=== PATIENT | male | born 1980 | race Two or more races ===

== ENCOUNTER 2018-01-07 19:49 | Inpatient (IN) | payer MEDICARE, MEDICAID ==
[~2018-01-07] VITALS: Ht 177.8 cm; Wt 75.3 kg
[2018-01-07] MEDS ORDERED: SODIUM CHLORIDE 0.9% 1,000 ML IV ONE ×2 (20:34→21:07)
[2018-01-07] MEDS ORDERED: KETOROLAC 30MG/ML VIAL IV STA (20:34)
[2018-01-07] MEDS ORDERED: ONDANSETRON HCL 4MG/2ML INJ IV STA (21:07)
[2018-01-07] MEDS ORDERED: MORPHINE SULFATE 4 MG/ML CPJ (NOT FOR IM USE) IV STA (21:07)
[2018-01-07 22:22] LABS: HEMATOCRIT. 22.1 % (42.0-52.0); HEMOGLOBIN. 7.8 g/dL (14.0-18.0); MEAN CORPUSCULAR HEMOGLOBIN 35.8 pg (28.0-32.0); MEAN CORPUSCULAR VOLUME 101.3 fL (80.0-94.0); PLATELET 202 x1000/uL (130-400); RED BLOOD CELL COUNT 2.18 mill/uL (4.7-6.1)
[2018-01-07 22:25] LABS: CHLORIDE 108 mEq/L (98-107)
[2018-01-07] MEDS ORDERED: MORPHINE SULFATE 4 MG/ML CPJ (NOT FOR IM USE) IV ONE (22:30)
[2018-01-07 22:46] LABS: NUCLEATED RED BLOOD CELLS 1 /100 WBC; PLATELET ESTIMATE NORMAL
[2018-01-07] MEDS ORDERED: HYDROMORPHONE HCL/PF 2MG/ML CPJ IV ONE (23:00)
[2018-01-07] MEDS ORDERED: HYDROMORPHONE HCL/PF 2MG/ML CPJ IV SCH (23:15)
[2018-01-07] MEDS ORDERED: ONDANSETRON HCL 4MG/2ML INJ IV PRN (23:45)
[2018-01-07] MEDS ORDERED: IPRATROPIUM/ALBUTEROL 0.5-3(2.5)MG/3ML NEB INH PRN (23:45)
[2018-01-07] MEDS ORDERED: GUAIFENESIN 200MG/10ML SUGAR FREE UDC PO PRN (23:45)
[2018-01-07] MEDS ORDERED: DOCUSATE SODIUM 100MG CAPSULE PO PRN (23:45)
[2018-01-07] MEDS ORDERED: NA PHOS,M-B/NA PHOS,DI-BA ENEMA 118ML PR PRN (23:45)
[2018-01-07] MEDS ORDERED: CLONIDINE 0.1MG TABLET PO PRN (23:45)
[2018-01-07] MEDS ORDERED: MAGNESIUM/ALUMINUM HYDROXIDE/SIMETHICONE 30ML UDC PO PRN (23:45)
[2018-01-08] MEDS: HYDROMORPHONE HCL/PF 2MG/ML CPJ IV PRN ×8 (02:11→22:45)
[2018-01-08] MEDS: DIPHENHYDRAMINE 50MG/ML VIAL IV PRN (02:11)
[2018-01-08 04:00] VITALS: BP 105/49
[2018-01-08 04:20] VITALS: BP 119/74
[2018-01-08 08:00] VITALS: BP 98/61
[2018-01-08] MEDS: ENOXAPARIN 40MG/0.4ML SYR SUBCUT SCH (08:39)
[2018-01-08] MEDS: SODIUM CHLORIDE 0.45% 1,000 ML IV SCH ×2 (09:49→22:54)
[2018-01-08 10:05] LABS: CLARITY URINE CLEAR (CLEAR); COLOR URINE YELLOW (YELLOW); KETONES URINE NEGATIVE (NEGATIVE); LEUKOCYTE ESTERASE URINE NEGATIVE (NEGATIVE); NITRITE URINE NEGATIVE (NEGATIVE); OCCULT BLOOD URINE TRACE (NEGATIVE); PROTEIN URINE NEGATIVE (NEGATIVE)
[2018-01-08 11:17] LABS: HEMATOCRIT. 22.2 % (42.0-52.0); MEAN CORPUSCULAR HEMOGLOBIN 35.9 pg (28.0-32.0); MEAN CORPUSCULAR VOLUME 100.2 fL (80.0-94.0); RED BLOOD CELL COUNT 2.22 mill/uL (4.7-6.1); RED CELL DISTRIBUTION WIDTH 23.6 % (11.6-14.6)
[2018-01-08 11:24] LABS: CHLORIDE 109 mEq/L (98-107)
[2018-01-08] MEDS: HYDROCODONE/ACETAMINOPHEN 10/325MG TABLET PO PRN ×3 (11:28→20:52)
[2018-01-08 12:00] VITALS: BP 110/72
[2018-01-08 12:40] LABS: PLATELET ESTIMATE NORMAL
[2018-01-08 12:42] LABS: PLATELET 194 x1000/uL (130-400)
[2018-01-08 12:44] LABS: NUCLEATED RED BLOOD CELLS 2 /100 WBC
[2018-01-08 16:00] VITALS: BP 105/56
[2018-01-08 20:00] VITALS: BP 111/79
[2018-01-08] MEDS: LORAZEPAM 2MG/ML CPJ IV PRN (22:44)
[2018-01-09] MEDS: DIPHENHYDRAMINE 50MG/ML VIAL IV PRN ×6 (00:53→22:25)
[2018-01-09] MEDS: HYDROCODONE/ACETAMINOPHEN 10/325MG TABLET PO PRN ×6 (00:56→22:35)
[2018-01-09] MEDS: LORAZEPAM 2MG/ML CPJ IV PRN ×3 (02:42→19:57)
[2018-01-09] MEDS: HYDROMORPHONE HCL/PF 2MG/ML CPJ IV PRN ×5 (02:44→20:34)
[2018-01-09] MEDS ORDERED: SODIUM CHLORIDE 0.45% 1,000 ML IV SCH (03:00)
[2018-01-09 04:00] VITALS: BP 113/67
[2018-01-09] MEDS: SODIUM CHLORIDE 0.45% 1,000 ML IV SCH ×2 (06:50→18:36)
[2018-01-09 08:00] VITALS: BP 143/63
[2018-01-09] MEDS: ENOXAPARIN 40MG/0.4ML SYR SUBCUT SCH (08:54)
[2018-01-09] MEDS: ACETAMINOPHEN 325MG TABLET PO PRN (14:11)
[2018-01-09 20:00] VITALS: BP 125/65
[2018-01-10] VITALS: BP 134/78
[2018-01-10] MEDS: HYDROMORPHONE HCL/PF 2MG/ML CPJ IV PRN ×7 (00:35→22:49)
[2018-01-10] MEDS: LORAZEPAM 2MG/ML CPJ IV PRN ×4 (00:36→21:03)
[2018-01-10] MEDS: DIPHENHYDRAMINE 50MG/ML VIAL IV PRN ×2 (02:40→06:51)
[2018-01-10] MEDS: HYDROCODONE/ACETAMINOPHEN 10/325MG TABLET PO PRN ×3 (02:40→12:57)
[2018-01-10] MEDS: SODIUM CHLORIDE 0.45% 1,000 ML IV SCH ×2 (02:40→11:34)
[2018-01-10 04:00] VITALS: BP 140/77
[2018-01-10 08:00] VITALS: BP 135/80
[2018-01-10] MEDS: ENOXAPARIN 40MG/0.4ML SYR SUBCUT SCH (09:00)
[2018-01-10 12:00] VITALS: BP 113/70
[2018-01-10 20:00] VITALS: BP 119/59
[2018-01-11] VITALS: BP 116/60
[2018-01-11] MEDS: HYDROMORPHONE HCL/PF 2MG/ML CPJ IV PRN ×3 (01:51→08:43)
[2018-01-11 04:00] VITALS: BP 101/61
[2018-01-11] MEDS: ACETAMINOPHEN 325MG TABLET PO PRN (04:59)
[2018-01-11] MEDS: SODIUM CHLORIDE 0.45% 1,000 ML IV SCH (07:34)
[2018-01-11 08:00] VITALS: BP 111/69
[2018-01-11] MEDS: ENOXAPARIN 40MG/0.4ML SYR SUBCUT SCH (09:05)
[2018-01-11] MEDS: HYDROCODONE/ACETAMINOPHEN 10/325MG TABLET PO PRN (11:03)
[2018-01-11] MEDS ORDERED: HYDROMORPHONE HCL/PF 2MG/ML CPJ IV PRN (11:15)
[2018-01-11 12:00] VITALS: BP 100/44
[2018-01-11 13:56] VITALS: BP 111/69
== END 2018-01-11 15:10 | disposition home or self-care (01) | DRG 811 ==
LOC: ER 19:49 → 6EST 23:05 → ENRESERV 01-08 02:03 → 6EST 01-08 08:21
PROVIDERS: ADMIT Internal Medicine; ATTEND Internal Medicine
DX: D57.00 Hb-SS disease with crisis, unspecified (principal); R65.11 Systemic inflammatory response syndrome (SIRS) of non-infectious origin with acute organ dysfunction; E86.0 Dehydration
CPT/HCPCS: 36415; 71045; 85044; 86850; 86900; 86920; 93005; 96361; 96374; 96375; 96376; 99285; J1170; J1200; J1650; J1885; J2060; J2270; J2405; J7030; J7050

== ENCOUNTER 2018-02-19 06:59 | Emergency (ER) | payer MEDICARE, MEDICAID ==
[~2018-02-19] VITALS: Ht 185.4 cm; Wt 73.0 kg
[2018-02-19 07:07] VITALS: BP 155/65
== END 2018-02-19 09:48 | disposition left against medical advice (07) ==
LOC: ER 06:59
DX: Z53.21 Procedure and treatment not carried out due to patient leaving prior to being seen by health care provider (principal)